=== PATIENT | female | born 2000 ===

== ENCOUNTER 2021-10-04 17:17 | Emergency (ER) | payer MEDICAID ==
[2021-10-04 17:23] VITALS: BP 124/72
== END 2021-10-05 14:05 | disposition left against medical advice (07) ==
LOC: ED 17:17
DX: O26.892 Other specified pregnancy related conditions, second trimester (principal); R10.9 Unspecified abdominal pain; Z53.21 Procedure and treatment not carried out due to patient leaving prior to being seen by health care provider; Z3A.18 18 weeks gestation of pregnancy